=== PATIENT | male | born 1945 | race Caucasian/White ===

== ENCOUNTER 2016-11-15 18:47 | Inpatient (IN) | payer OTHER ==
[~2016-11-15] VITALS: Ht 172.7 cm; Wt 84.4 kg
--- NOTE | ~2016-11-15 | CATHLAB ---
[facility] [address] [place] [address] INVASIVE PROCEDURE REPORT Name: MISSY ALVES Room #: 211-P ADM IN M.R.#: [id number] Admission: 11/15/16 Attend Phys: Manoj Austin, Discharge: Date of : 49 Date of Service: 11/16/16 0917 Report #: [id number] THIS REPORT FOR: //name// CC: OMAR physician/PCP Manoj Austin PROCEDURES: Left ventriculography, coronary angiography, abdominal aortography and SVG, JONES visualization. DESCRIPTION OF PROCEDURE: The patient brought to the catheterization lab with recurrent chest pain, bypass surgery 10 years prior with no graft report. Right groin prepped and draped in the sterile manner. Xylocaine 1% was used for local anesthesia. Versed was given for conscious sedation. A 6-Latv[place] sheath in the right femoral artery over the wire. Initially, straight pigtail catheter performed a single PAGE ventriculogram and AP aortogram. I also utilized a JR4 for JONES visualization and SVG that was occluded to possibly a diagonal system and an SVG that was patent to OM and PDA, possibly of a dominant circumflex. The [place] right was occluded. The patient tolerated well. Mynx closure was utilized. The LV function was near normal with subtle inferior hypo EF 50. Abdominal aorta mildly ectatic. Renal arteries were patent. HEMODYNAMICS: Aortic 124/82, LV 118/8. IMPRESSION: 1. Left main mildly diseased, giving rise to essentially a [place] left anterior descending, which is occluded and a [place] circumflex which is intact. 2. [place] circumflex is a high-grade lesion proximally. It does fill into the AV groove only and the obtuse marginal systems are occluded. 3. The saphenous vein graft to what looks to be either 2 or possibly OM1 and OM2, which are small, diffusely diseased vessels and then a posterior descending artery, which may have been a dominant circumflex. It is patent diffusely filling the inferior wall. 4. The [place] right is occluded. 5. There is an saphenous vein graft that is occluded, possibly went to a diagonal system. I believe this to have been a left dominant system. 6. Normal left ventricular size with subtle inferior wall, hypo EF 50% range. 7. Abdominal aorta is mildly ectatic, without aneurysm. Renal arteries widely patent. RECOMMENDATIONS: I will continue aggressive risk factor modification. We will continue metoprolol 50 b.i.d., lisinopril, atorvastatin, Plavix, baby aspirin and hydrochlorothiazide. Would consider the addition of Imdur 30 q.a.m. and [address] [address] INVASIVE PROCEDURE REPORT Name: MISSY ALVES Room #: 211-P [facility] IN M.R.#: [id number] Admission: 11/15/16 Attend Phys: Manoj Austin, Discharge: Date of : 49 Date of Service: 11/16/16 0917 Report #: [id number] would continue with a PPI. No lifting for 48 hours. No lying in tub, Jacuzzi or [place] for a week. By: 0917 1146 Manoj Austin MD, FACC /nt
--- NOTE | ~2016-11-15 | D ---
[facility] [place] [address] DISCHARGE SUMMARY Name: MISSY ALVES Room #: 211-P DIS IN M.R.#: [id number] Admission: 11/15/16 Attend Phys: Manoj Austin MD, Discharge: 11/16/16 Date of : 49 Report #: [id number] THIS REPORT FOR: //name// CC: OMAR physician/PCP Manoj Austin DATE OF SERVICE: 11/16/2016 HOSPITAL COURSE: A 71-year-old male who was admitted for cardiac catheterization with accelerating anginal pattern. Subsequently taken to the catheterization lab, which did reveal evidence of an occluded vein graft which I suspect went to possibly a diagonal branch. There was a JONES to an LAD that was intact. There was an SVG that went to 2 OMs and then a PDA of the circumflex. These were diffusely diseased vessels. The LAD was patent, but diseased. The [place] right was essentially occluded. I suspect that may have been nondominant or codominant. The LV function was near normal. The [place] circumflex was patent, but filling only in the AV groove. The OM branches were all occluded, so I did not believe that it had high grade proximal stenosis, but I did not believe that intervening would make any significant difference and the risk, benefit was not in his favor. He did well, carotid Doppler suggests slight trickle flow in what was known to be a chronically occluded left carotid from a report from [place]. I did a CTA which confirmed that there was total occlusion of the left carotid system, internal carotid. Right had mild disease. He is up and ambulating, doing well. He will be discharged to home on his home medications. In addition, I have added Imdur 30 to the regimen. Low fat, low sodium, low cholesterol diet. No lifting for 48 hours. No lying in tub, Jacuzzi or larry for a week. Follow up with me in 3 months. He could have some stable anginal symptoms based on this anatomy, but would have to show significant ischemia on nuclear testing, which I would like to correlate with this anatomy some time in the next 3-6 months. HOME MEDICATIONS: HCTZ 25, baby aspirin, Plavix 75, Lipitor 10, lisinopril 20, metoprolol 50 b.i.d., omeprazole 20 and now I have added Imdur 30. DISCHARGE DIAGNOSES: 1. Coronary artery disease. 2. Hypertension. 3. Hypercholesterolemia. 4. Stable angina. 5. [address]lux. [facility] [address] [place] [address] DISCHARGE SUMMARY Name: MISSY ALVES Room #: 211-P [facility].#: [id number] Admission: 11/15/16 Attend Phys: Manoj Austin MD, Discharge: 11/16/16 Date of : 49 Report #: [id number] Thank you for assisting in the care of this patient. By: 2149 2230 Manoj Austin MD, FACC /nt
--- NOTE | ~2016-11-15 | EKG ---
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
--- NOTE | ~2016-11-15 | 2DMMODE ---
[facility] [address] [place] [address] 2 D/M-MODE ECHOCARDIOGRAM Name: MISSY ALVES Room #: 211-P [facility] IN M.R.#: [id number] Admission: 11/15/16 Attend Phys: Manoj Austin, Discharge: Date of : 49 Date of Service: 11/16/16 1650 Report #: [id number] THIS REPORT FOR: //name// APPROVED REPORT Study performed: 11/16/2016 15:50:49 EXAM: Comprehensive 2D, Doppler, and color-flow Echocardiogram Patient Location: Bedside Room #: 211 Blood Pressure: 153/71 mmHg HR: 74 bpm Other Information Study Quality: Poor Indications CAD Chest Pain Hypertension/HDD 2D Dimensions LVEF(%): 66.85 (>50%) IVSd: 10.61 (7-11mm) LVOT Diam: 21.75 (18-24mm) LVDd: 44.96 mm PWd: 10.12 (7-11mm) Ascending Aorta: 28.77 mm LVDs: 28.39 (25-40mm) IVC: 14.00 mm Aortic Root: 34.10 mm Jarrett's LVEF: 66.85 % Volumes Left Atrial Volume (Systole) Single Plane 4CH: 30.14 mL Single Plane 2CH: 33.48 mL LA ESV Index: 18.00 mL/m2 Aortic Valve AoV Peak Shankar.: 1.26 m/s AO Peak Gr.: 6.32 mmHg LV Max P.16 mmHg LV Max: 0.89 m/s Mitral Valve E/A Ratio: 0.9 MV Decel. Time: 223.08 ms [facility] [address] [place] [address] 2 D/M-MODE ECHOCARDIOGRAM Name: MISSY ALVES Room #: 211-P [facility] IN [facility].#: [id number] Admission: 11/15/16 Attend Phys: Manoj Austin, Discharge: Date of : 49 Date of Service: 11/16/16 1650 Report #: [id number] MV E Max Shankar.: 0.66 m/s MV A Shankar.: 0.73 m/s MV PHT: 64.69 ms Pulmonary Valve PV Peak Shankar.: 0.90 m/s PV Peak Gr.: 3.27 mmHg Pulmonary Vein P Vein S: 42.0 m/s P Vein D: 31.9 m/s P Vein A Dur.: 24.0 m/s PVa Duration: 88 Tricuspid Valve RAP Estimate: 5.00 mmHg Left Ventricle The left ventricle is normal size. There is normal left ventricular wall thickness. The left ventricular systolic function is normal. The left ventricular ejection fraction is within the normal range. LVEF is 55-60%. Left ventricular filling pattern is normal for age. Right Ventricle The right ventricle is normal size. The right ventricular systolic function is normal. Atria The left atrium size is normal. The right atrium size is normal. Aortic Valve The aortic valve is normal in structure. No aortic regurgitation is present. There is no aortic valvular stenosis. Mitral Valve The mitral valve is normal in structure. Trace mitral regurgitation. No evidence of mitral valve stenosis. Tricuspid Valve The tricuspid valve is normal in structure. There is no tricuspid valve regurgitation noted. Pulmonic Valve The pulmonary valve is normal in structure. There is no pulmonic valvular regurgitation. Great Vessels [facility] [place] [address] 2 D/M-MODE ECHOCARDIOGRAM Name: MISSY ALVES Room #: 211-P ADM IN M.R.#: [id number] Admission: 11/15/16 Attend Phys: Manoj Austin, Discharge: Date of : 49 Date of Service: 11/16/16 1650 Report #: [id number] The aortic root is normal in size. IVC is normal in size and collapses >50% with inspiration. Pericardium There is no pericardial effusion. <Conclusion> The left ventricle is normal size. LVEF is 55-60%. The right ventricle is normal size. The left atrium size is normal. The right atrium size is normal. The aortic valve is normal in structure. The mitral valve is normal in structure. The tricuspid valve is normal in structure. <ELECTRONICALLY SIGNED> By: Jorge Quezada MD 11/16/161649 49 49 Jorge Quezada MD /INF
--- NOTE | ~2016-11-15 | H ---
[facility] [place] [address] HISTORY AND PHYSICAL Name: MISSY ALVES Room #: 211-P ADM IN M.R.#: [id number] Admission: 11/15/16 Attend Phys: Manoj Austin MD, Discharge: Date of : 49 Report #: [id number] THIS REPORT FOR: //name// CC: OMAR physician/PCP Manoj Austin DATE OF SERVICE: 11/15/2016 HISTORY OF PRESENT ILLNESS: The patient is a 71-year-old male who I had seen last week in the office. It sounds like he was having an accelerating anginal pattern. We are trying to set him up for an outpatient evaluation. However, over the Easter weekend, he had some more chest discomfort today, associated with some mild shortness of breath lasted approximately 15 minutes. He has had bypass surgery in 2005, 5-vessel down to [facility] in [place] and recently moved here from [place]. Been relatively healthy until last 2-3 weeks when he is having accelerating angina, which feels like his prior chest pain in 2005. No recent stress testing. I have limited records. It looks like from picture of the catheterization in 2005, the right coronary was totally occluded, 90% LAD and 80% circumflex OM and then subsequently a 5-vessel bypass. I do not actually see the bypass report in some of these limited records. He has been compliant with his medications. He does note some increasing fatigue. He denies PND, orthopnea or peripheral edema. His lipids are favorable. He has not been able to exercise much because of this. CURRENT MEDICATIONS: Hydrochlorothiazide, baby aspirin, lisinopril 20, Plavix 75, metoprolol 50 b.i.d., atorvastatin, I had recently increased from 10 to 40 and Tylenol p.r.n. PAST MEDICAL HISTORY: Positive for the CAD with bypass as stated above, limited infarct, preserved LV function they state, although I do not have records that states so. A TIA or stroke in 2015 with a left carotid occlusion, I do not have any records regarding that; hypertension; hypercholesterolemia; tonsillectomy; hernia repair; appendectomy. FAMILY HISTORY: Father at 73 from coronary issues and cancer, mother lived at 89 and a daughter who at 23 from lupus. SOCIAL HISTORY: He has recently moved here from [place]. He is , never tobacco user. Some caffeine. He is retired. No alcohol. ALLERGIES: No known drug allergies. REVIEW OF SYSTEMS: Essentially negative except for some occasional nocturia and as stated above. LABORATORY DATA: Lipids from the office, the total cholesterol was 156, the LDL [facility] [address] [place] [address] HISTORY AND PHYSICAL Name: MISSY ALVES Room #: 211-P [facility] IN M.R.#: [id number] Admission: 11/15/16 Attend Phys: Manoj Austin MD, Discharge: Date of : 49 Report #: [id number] was 56, the HDL was 28, triglycerides were 396. Laboratory work here with creatinine 1.1, potassium 4.0. H and H 13.3 and 39.1. ASSESSMENT: 1. Accelerating angina with recurrent chest pain. 2. Coronary artery disease with prior coronary artery bypass graft in 2005. 3. Hypertension. 4. Hypercholesterolemia. 5. Hypertriglyceridemia. 6. History of stroke with left carotid occlusion. RECOMMENDATIONS AND PLAN: With his recurrent chest pain, T-wave inversions on his EKG, which is actually somewhat of a changing from last week in the office, I will proceed to the catheterization lab in the morning. He is pain free at this point. He has had his aspirin and his medications. We will start IV fluids in the morning and aspirin and statin and proceed to the cath to delineate the anatomy nitro if he has any recurrent discomfort. He is comfortable at this time. I discussed this plan with him and his . We will proceed in the a.m. to delineate the anatomy and intervention as indicated. By: 21 Manoj Austin MD, FACC /nt
--- NOTE | ~2016-11-15 | EKG ---
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
[2016-11-15 18:48] VITALS: BP 140/79
[2016-11-15 19:27] LABS: ABSOLUTE NEUTROPHILS 4.2 thou/uL (1.4-8.2); BASOPHILS 0.5 % (0.0-2.0); EOSINOPHILS 1.9 % (0.0-3.0); HEMATOCRIT 39.1 % (42.0-52.0); HEMOGLOBIN 13.3 gm/dL (14.0-18.0); LYMPHOCYTES 27.5 % (24.0-44.0); MCH 30.2 pg (26.0-34.0); MCHC 34.2 g/dL (28.0-37.0); MCV 88.3 fL (80.0-100.0); MONOCYTES 7.5 % (1.0-8.0); PLATELET COUNT 54 thou/uL (150-400); POLYS 62.6 % (36.0-66.0); RBC 4.42 mil/uL (4.50-6.00); RDW 13.5 % (10.5-14.5); WBC 6.7 thou/uL (4.0-11.0)
[2016-11-15 19:29] LABS: MANUAL DIFF NO
[2016-11-15 19:34] LABS: ANION GAP 14 mmol/L (7-16); BUN 17 mg/dL (7-18); CALCIUM 9.1 mg/dL (8.5-10.1); CHLORIDE 103 mmol/L (98-107); CO2 24 mmol/L (21-32); CREATININE 1.1 mg/dL (0.7-1.3); GLUCOSE 107 mg/dL (74-106); SODIUM 141 mmol/L (136-145)
[2016-11-15 19:45] LABS: TROPONIN-I < 0.04 ng/mL (<0.04-0.07)
[2016-11-15] MEDS ORDERED: ASPIR 8181 MG PO (20:17)
[2016-11-15] MEDS ORDERED: LIPITOR10 MG PO (20:18)
[2016-11-15] MEDS ORDERED: PLAVIX 75 MG TA75 M1 PO (20:18)
[2016-11-15 20:19] VITALS: BP 128/72
[2016-11-15] MEDS ORDERED: LISINOPRIL20 MG PO (20:19)
[2016-11-15] MEDS ORDERED: OMEPRAZOLE20 M1 PO (20:19)
[2016-11-15] MEDS ORDERED: LOPRESSOR50 PO (20:19)
[2016-11-15] MEDS ORDERED: HYDROCHLOROTHIA25 M2 PO (20:37)
[2016-11-15 20:45] VITALS: BP 161/65
[2016-11-15 23:35] VITALS: BP 128/71
[2016-11-16] VITALS (11 sets, daily range): BP systolic 119–153; BP diastolic 64–87
[2016-11-16 03:58] LABS: INR 1.1; PROTIME 11.1 Seconds (9.3-11.4)
== END 2016-11-16 20:45 | disposition home or self-care (01) | DRG 287 ==
LOC: ER 18:47 → EROBS 20:05 → 2N 20:05
PROVIDERS: Emergency Medicine; Internal Medicine Cardiovascular Disease
PROC: B2111ZZ Fluoroscopy of Multiple Coronary Arteries using Low Osmolar Contrast (ICD-10-PCS; principal; 2016-11-16)
PROC: B21F1ZZ Fluoroscopy of Other Bypass Graft using Low Osmolar Contrast (ICD-10-PCS; principal; 2016-11-16)
PROC: B4101ZZ Fluoroscopy of Abdominal Aorta using Low Osmolar Contrast (ICD-10-PCS; principal; 2016-11-16)
PROC: B2151ZZ Fluoroscopy of Left Heart using Low Osmolar Contrast (ICD-10-PCS; principal; 2016-11-16)
PROC: 4A023N7 Measurement of Cardiac Sampling and Pressure, Left Heart, Percutaneous Approach (ICD-10-PCS; principal; 2016-11-16)
PROC: B2181ZZ Fluoroscopy of Left Internal Mammary Bypass Graft using Low Osmolar Contrast (ICD-10-PCS; principal; 2016-11-16)
DX: I25.110 Atherosclerotic heart disease of native coronary artery with unstable angina pectoris (principal); I65.22 Occlusion and stenosis of left carotid artery; I10 Essential (primary) hypertension; E78.00 Pure hypercholesterolemia, unspecified; E78.1 Pure hyperglyceridemia; K21.9 Gastro-esophageal reflux disease without esophagitis; Z86.73 Personal history of transient ischemic attack (TIA), and cerebral infarction without residual deficits; Z90.49 Acquired absence of other specified parts of digestive tract; Z95.1 Presence of aortocoronary bypass graft; Z82.49 Family history of ischemic heart disease and other diseases of the circulatory system
CPT/HCPCS: 10081

== ENCOUNTER 2016-11-20 11:49 | Emergency (ER) | payer OTHER ==
[~2016-11-20] VITALS: Ht 172.7 cm; Wt 84.4 kg
--- NOTE | ~2016-11-20 | EKG ---
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
[~2016-11-20 11:49] MED LIST: ASPIR 8181 MG PO; HYDROCHLOROTHIA25 M2 PO; LIPITOR10 MG PO; LISINOPRIL20 MG PO; LOPRESSOR50 PO; OMEPRAZOLE20 M1 PO; PLAVIX 75 MG TA75 M1 PO
[2016-11-20 13:17] LABS: ABSOLUTE NEUTROPHILS 5.5 thou/uL (1.4-8.2); BASOPHILS 0.3 % (0.0-2.0); EOSINOPHILS 2.2 % (0.0-3.0); HEMOGLOBIN 11.2 gm/dL (14.0-18.0); LYMPHOCYTES 11.4 % (24.0-44.0); MCH 30.7 pg (26.0-34.0); MCHC 35.1 g/dL (28.0-37.0); MCV 87.5 fL (80.0-100.0); PLATELET COUNT 140 thou/uL (150-400); POLYS 77.1 % (36.0-66.0); RBC 3.66 mil/uL (4.50-6.00); RDW 13.2 % (10.5-14.5); WBC 7.2 thou/uL (4.0-11.0)
[2016-11-20 13:21] LABS: MANUAL DIFF NO
[2016-11-20 13:26] LABS: ANION GAP 9 mmol/L (7-16); BUN 12 mg/dL (7-18); CALCIUM 7.8 mg/dL (8.5-10.1); CHLORIDE 111 mmol/L (98-107); CO2 25 mmol/L (21-32); GLUCOSE 112 mg/dL (74-106); POTASSIUM 3.6 mmol/L (3.5-5.1); SODIUM 145 mmol/L (136-145)
[2016-11-20 13:33] LABS: ALBUMIN 3.4 g/dL (3.4-5.0); ALKALINE PHOSPHATASE 56 U/L (46-116); DIRECT BILIRUBIN < 0.1 mg/dL (<0.1-0.3); SGOT 20 U/L (15-37); SGPT 32 U/L (30-65); TOTAL BILIRUBIN 0.3 mg/dL (<0.1-1.0); TOTAL PROTEIN 6.5 g/dL (6.4-8.2)
[2016-11-20 13:37] LABS: TROPONIN-I 0.63 ng/mL (<0.04-0.07)
[2016-11-20] MEDS ORDERED: PRILOSEC OTC20 MG PO (16:45)
== END 2016-11-20 17:01 | disposition home or self-care (01) ==
LOC: ER 11:49
PROVIDERS: Emergency Medicine
DX: R07.9 Chest pain, unspecified (principal); I10 Essential (primary) hypertension; K21.9 Gastro-esophageal reflux disease without esophagitis; E78.5 Hyperlipidemia, unspecified; Z86.73 Personal history of transient ischemic attack (TIA), and cerebral infarction without residual deficits; Z95.1 Presence of aortocoronary bypass graft; Z90.89 Acquired absence of other organs